=== PATIENT | male | born 2000 | race Two or more races ===

== ENCOUNTER 2023-01-05 21:57 | Emergency (ER) | payer MEDICAID, OTHER ==
[~2023-01-05] VITALS: Ht 170.2 cm; Wt 85.9 kg
[2023-01-05 22:06] VITALS: BP 143/89; PULSE 86; RESP 16; TEMP 98; O2SAT 96
[2023-01-06] MEDS ORDERED: HYDROcodone-ACET 5/325MG TAB PO ONE (00:15)
[2023-01-06] MEDS ORDERED: HYDR-4902 PO (00:17)
== END 2023-01-06 00:28 | disposition home or self-care (01) ==
LOC: ER 21:57
DX: S83.92XA Sprain of unspecified site of left knee, initial encounter (principal); M25.462 Effusion, left knee; W01.0XXA Fall on same level from slipping, tripping and stumbling without subsequent striking against object, initial encounter; Y93.89 Activity, other specified; Y92.89 Other specified places as the place of occurrence of the external cause; Y99.8 Other external cause status
CPT/HCPCS: 29505; 73562

== ENCOUNTER 2023-12-18 07:01 | Inpatient (IN) | payer MEDICAID ==
[~2023-12-18] VITALS: Ht 170.2 cm; Wt 89.0 kg
[~2023-12-18 07:01] MED LIST: HYDR-4902 PO
[2023-12-18] MEDS ORDERED: PANT40TA2 PO (07:41)
[2023-12-18 07:48] LABS: Chloride 103 mmol/L (98-107); Sodium 139 mmol/L (136-145)
[2023-12-18 07:49] LABS: Anion Gap 7 (5-15); Carbon Dioxide 29 mmol/L (20-31)
[2023-12-18 07:50] LABS: Basophils # (auto) 0 10 ^3/uL (0-0.2); Basophils % (auto) 0.2 % (0.0-2.0); Eosinophils # (auto) 0.2 10 ^3/uL (0-0.8); Eosinophils % (auto) 1.3 % (0.0-7.0); Hematocrit 46.8 % (41.0-53.0); Hemoglobin 15.8 g/dL (13.5-17.5); Lymphocytes # (auto) 1.3 10 ^3/uL (0.4-5.4); Mean Corpuscular Hemoglobin 30.8 pg (28.0-32.0); Mean Corpuscular Hgb Conc. 33.7 g/dL (32.0-36.0); Mean Corpuscular Volume 91.6 fL (80.0-100.0); Monocytes # (auto) 0.9 10 ^3/uL (0-1.3); Monocytes % (auto) 5.4 % (0.0-12.0); Neutrophils % (auto) 85.1 % (37.0-80.0); Platelet Count (auto) 304 10^3/uL (140-450); Red Blood Cells 5.11 10^6/uL (4.5-5.90); Red Cell Distribution Width 13.3 % (11.8-14.3); White Blood Cell 16.5 10^3/uL (4.4-10.8)
[2023-12-18 07:54] LABS: BUN/Creatinine Ratio 10.8 (10.0-20.0); Blood Urea Nitrogen 12 mg/dL (9-23); Glucose 120 mg/dL (74-106)
[2023-12-18] MEDS: LIDOCAINE VISCOUS 2% 15ML UD PO ONE (07:55)
[2023-12-18] MEDS: MAALOX PLUS or MAALOX 30 ML PO ONE (07:55)
[2023-12-18] MEDS: DONNATAL 5ml ORAL Elix (BELLADONNA ALK-PHENOBARB) PO ONE (07:56)
[2023-12-18] MEDS: cefTRIAXone 1GM/50ML D5W 50 ML IV ONE (08:44)
[2023-12-18] MEDS: ONDANSETRON HCL 4 MG/2 ML VIAL IV ONE (09:08)
[2023-12-18 09:37] VITALS: PULSE 84; RESP 20; O2SAT 97
[2023-12-18] MEDS ORDERED: MORPHINE SULFATE INJ 2 MG/ml SYRG IV PRN ×2 (10:45)
[2023-12-18] MEDS ORDERED: HYDROcodone-ACET 5/325MG TAB PO PRN (10:45)
[2023-12-18] MEDS ORDERED: ACETAMINOPHEN 325 MG TAB PO PRN (10:45)
[2023-12-18] MEDS ORDERED: NITROGLYCERIN 0.4 MG SL TAB SL PRN (10:45)
[2023-12-18] MEDS: metroNIDAZOLE 500MG/100ML 100 ML IV SCH (13:26)
[2023-12-18 18:01] VITALS: BP 95/42; PULSE 68; RESP 15; TEMP 98.8; O2SAT 97
[2023-12-19] MEDS ORDERED: PANTOPRAZOLE 40 MG TAB PO SCH (06:00)
[2023-12-19] MEDS ORDERED: cefTRIAXone 1GM/50ML D5W 50 ML IV SCH (09:00)
[2023-12-19] MEDS ORDERED: ENOXAPARIN SOD 40 MG/0.4 ML SYRINGE SC SCH (10:00)
== END 2023-12-18 23:50 | disposition left against medical advice (07) | DRG 248 ==
LOC: ER 07:01 → OVERFLOW 10:31 → UNDODISIN 12-19 00:03
PROVIDERS: ADMIT Nurse Practitioner Family; ATTEND Nurse Practitioner Family
DX: A04.9 Bacterial intestinal infection, unspecified (principal); E66.9 Obesity, unspecified; Z53.29 Procedure and treatment not carried out because of patient's decision for other reasons; K29.00 Acute gastritis without bleeding; Z79.899 Other long term (current) drug therapy; Z68.30 Body mass index [BMI] 30.0-30.9, adult
CPT/HCPCS: 36415; 74176; 80048; 85025; G0378; J2405; J3490